=== PATIENT | male | born 1970 | race Caucasian/White ===

== ENCOUNTER → 2024-07-19 | Outpatient (CLI) | payer MEDICAID, SELFPAY ==
--- NOTE | 2024-07-19 13:00 | XR_ITS ---
Examination: CT brain head without contrast. 2-D sagittal coronal reconstructions Date and time of exam:July 19, 2024 1312 hours Comparison January 18, 2006 INDICATIONS: Frequent falls this year with recurrent headaches CTDI: vol (mGy):52.4 DLP: (mGycm):1026 Technique: Multiple CT axial sections of the brain have been obtained, 5 mm slice thickness. Contrast has not been administered. 2-D sagittal, coronal reconstructions have been obtained Low dose protocols were performed. One or more of the following dose reduction techniques were used; automated exposure control, adjustment of the mA and/or KV according to patient size, use of iterative reconstruction technique. Findings: No significant ventricular enlargement. Intra-axial or extra-axial hemorrhage density is not seen. No mass effect or midline shift Basal cisterns are not remarkable. Fourth ventricle is midline. Cranial vault intact. Impression: Negative for acute hemorrhage, mass effect or midline shift
== END | disposition home or self-care (01) ==
LOC: CCTX 12:56
PROVIDERS: Referring Provider Nurse Practitioner Family; Visit Provider Nurse Practitioner Family
DX: R51.9 Headache, unspecified (principal); Z91.81 History of falling
CPT/HCPCS: 70450

== ENCOUNTER → 2025-01-21 | Outpatient (CLI) | payer MEDICAID, SELFPAY ==
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
== END | disposition home or self-care (01) ==
LOC: SMRI 11:14
PROVIDERS: PCP Nurse Practitioner Family; Referring Provider Nurse Practitioner Family; Visit Provider Nurse Practitioner Family
DX: R90.82 White matter disease, unspecified (principal); G37.9 Demyelinating disease of central nervous system, unspecified
CPT/HCPCS: 70551